=== PATIENT | female | born 1955 | race Caucasian/White ===

== ENCOUNTER → 2016-09-17 | Outpatient (CLI) | payer OTHER ==
--- NOTE | 2016-09-17 14:38 | MM ---
Reason for exam: additional evaluation requested from prior study. Last mammogram was performed 1 year and 1 month ago. History: Patient is postmenopausal, has history of other cancer at age 45, and has history of breast cancer at age 44. Family history of premenopausal breast cancer in mother at age 48. Lumpectomy of the left breast, August 21, 1999. Malignant excisional biopsy of the left breast, July 25, 1999. Radiation therapy of the left breast, 1999. Benign excisional biopsy of the left breast, July 01, 1997. Excisional biopsy of the left breast. Took tamoxifen for 5 years beginning at age 44. Physical Findings: Nurse did not find any significant physical abnormalities on exam. MG Diagnostic Mammo w CAD ADAN Bilateral CC and MLO view(s) were taken. Prior study comparison: August 08, 2015, bilateral MG 3d diag mammo w/cad ADAN. June 14, 2014, bilateral MG diagnostic mammo w CAD ADAN. There are scattered fibroglandular densities. Benign calcifications. Stable post operative distortion in the left breast. No significant new findings when compared with previous films. These results were verbally communicated with the patient and result sheet given to the patient on 09/17/16. ASSESSMENT: Negative, BI-RAD 1 RECOMMENDATION: Follow-up diagnostic mammogram of both breasts in 1 year.
== END | disposition home or self-care (01) ==
LOC: RADMAMWWP 13:29
PROVIDERS: ATTEND Obstetrics & Gynecology
DX: Z08 Encounter for follow-up examination after completed treatment for malignant neoplasm (principal); Z85.3 Personal history of malignant neoplasm of breast

== ENCOUNTER → 2018-01-07 | Outpatient (CLI) | payer OTHER ==
--- NOTE | 2018-01-08 10:29 | MM ---
Reason for exam: additional evaluation requested from prior study. Last mammogram was performed 1 year and 4 months ago. History: Patient is postmenopausal, has history of other cancer at age 45, and has history of breast cancer at age 44. Family history of premenopausal breast cancer in mother at age 48. Lumpectomy of the left breast, August 21, 1999. Malignant excisional biopsy of the left breast, July 25, 1999. Radiation therapy of the left breast, 1999. Benign excisional biopsy of the left breast, July 01, 1997. Excisional biopsy of the left breast. Took tamoxifen for 5 years beginning at age 44. Physical Findings: Nurse did not find any significant physical abnormalities on exam. MG Diagnostic Mammo w CAD ADAN Bilateral CC and MLO view(s) were taken. Prior study comparison: September 17, 2016, bilateral MG diagnostic mammo w CAD ADAN. August 08, 2015, bilateral MG 3d diag mammo w/cad ADAN. The breast tissue is heterogeneously dense. This may lower the sensitivity of mammography. Post surgical and post therapy changes in the left breast. No significant new findings when compared with previous films. These results were verbally communicated with the patient and result sheet given to the patient on 01/07/18. ASSESSMENT: Benign, BI-RAD 2 RECOMMENDATION: Follow-up diagnostic mammogram of both breasts in 1 year.
--- NOTE | 2018-01-08 17:17 | BD ---
EXAMINATION TYPE: Axial Bone Density DATE OF EXAM: 01/07/2018 COMPARISON: 06/02/2015 CLINICAL HISTORY: Height: 64.7 IN Weight: 160 LBS FRAX RISK QUESTIONS: Secondary Osteoporosis: Current Tobacco Use: YES RISK FACTORS HISTORY OF: Active: YES Diet low in dairy products/other sources of calcium: YES MEDICATIONS: Additional Medications: CALCIUM, BLOOD PRESSURE MEDS, Additional History: BREAST CANCER AGE 44 WITH RADIATION EXAM MEASUREMENTS: Bone mineral densitometry was performed using the TwtBks System. Bone mineral density as measured about the Lumbar spine is: ----- L1-L4(G/cm2): 1.038 T Score Values are as follows: ----- L2: -1.6 ----- L3: -1.1 ----- L4: -1.2 ----- L1-L4: -1.2 Bone mineral density has: Increased 1.7% since study of: 06/02/2015 Bone mineral density about the R hip (g/cm2): 0.805 Bone mineral density about the L hip (g/cm2): 0.823 T Score values are as follows: -----R Neck: -1.7 -----L Neck: -1.5 -----R Total: -1.8 -----L Total: -1.6 Bone mineral density has: Decreased -1.4% since study of: 06/02/2015 IMPRESSION: Osteopenia (T Score between -2.5 and -1). There is slightly increased risk of fracture and the patient may be considered for treatment. Re-Screen 2-5 years. NOTE: T-SCORE=SD OF THE YOUNG ADULT MEAN.
== END | disposition home or self-care (01) ==
LOC: RADMAMWWP 15:26
PROVIDERS: ATTEND Obstetrics & Gynecology
DX: Z08 Encounter for follow-up examination after completed treatment for malignant neoplasm (principal); M85.80 Other specified disorders of bone density and structure, unspecified site
CPT/HCPCS: 77066; 77080

== ENCOUNTER → 2019-06-11 | Outpatient (CLI) | payer MEDICARE, BC ==
--- NOTE | 2019-06-11 13:24 | MM ---
Reason for exam: additional evaluation requested from prior study. Last mammogram was performed 1 year and 5 months ago. History: Patient is postmenopausal, has history of other cancer at age 45, and has history of breast cancer at age 44. Family history of premenopausal breast cancer in mother at age 48. Lumpectomy of the left breast, August 21, 1999. Malignant excisional biopsy of the left breast, July 25, 1999. Radiation therapy of the left breast, 1999. Benign excisional biopsy of the left breast, July 01, 1997. Excisional biopsy of the left breast. Took tamoxifen for 5 years beginning at age 44. Physical Findings: Nurse did not find any significant physical abnormalities on exam. MG 3D Diag Mammo W/Cad ADAN Bilateral CC and MLO view(s) were taken. Prior study comparison: January 07, 2018, bilateral MG diagnostic mammo w CAD ADAN. September 17, 2016, bilateral MG diagnostic mammo w CAD ADAN. The breast tissue is heterogeneously dense. This may lower the sensitivity of mammography. There are linear branching new 3.2cm pleomorphic calcifications at the prior lumpectomy site in the left upper outer quadrant. Biopsy recommended CC from above approach to target the branching more medial calcifications. These results were verbally communicated with the patient and result sheet given to the patient on 06/11/19. ASSESSMENT: Suspicious, BI-RAD 4 RECOMMENDATION: Stereotactic core biopsy of the left breast. Called Dr. Guadarrama's office with mammographic findings and has scheduled an appointment for the patient for 07/13/19 at 9:[address] Francois. Biopsy schedueld for 07/03/19 at 10:20. PRELIMINARY REPORT CALLED AND FAXED TO DR. FRANCOIS ON 06/11/19.
== END | disposition home or self-care (01) ==
LOC: RADMAMWWP 10:44
PROVIDERS: ATTEND Obstetrics & Gynecology
DX: Z08 Encounter for follow-up examination after completed treatment for malignant neoplasm (principal); Z85.3 Personal history of malignant neoplasm of breast
CPT/HCPCS: 77066; G0279; 77062

== ENCOUNTER → 2019-07-03 | Day surgery (SDC) | payer MEDICARE, BC ==
[2019-07-03 11:47] VITALS: BP 144/77; PULSE 54; RESP 16; TEMP 97.4
--- NOTE | 2019-07-03 17:00 | MM ---
EXAMINATION TYPE: MG stereo VAD BX LT DATE OF EXAM: 07/03/2019 COMPARISON: 06/11/2019 CLINICAL HISTORY: Abnormal mammogram, calcifications TECHNIQUE: Stereotactic guided core biopsy of left breast. FINDINGS: The procedure of stereotactic guided core biopsy was explained to the patient. Benefits, alternatives, and risks were discussed. An informed consent was then obtained. A timeout was performed. The shortness pathway for biopsy was chosen. Shortness pathway was caudal to cranial approach. The procedure and the targeting were performed by radiology. The skin and deeper breast tissue was anesthetized with 1% lidocaine. The deep tissue was anesthetized with 1% lidocaine with epinephrine. A small skin rhianna was placed. The needle was advanced. Confirmation of positioning was confirmed with stereo views. The needle was advanced and final positioning was confirmed with stereo views. 7 core samples were obtained with a vacuum assisted biopsy device. The sample was evaluated which contained calcifications. The needle was withdrawn and a core marker was placed at the biopsy site. The patient tolerated the procedure well without any immediate complication. Post procedure mammogram: The core marker is within the left breast at the biopsy site. Some calcifications appear to been resected. The patient tolerated procedure well. Discharge instructions were discussed with the patient. Patient will follow-up with her surgeon for results. IMPRESSION: 1. Successful stereotactic core biopsy left breast calcifications. Recommendations: 1. Recommendations are pending pathology results. 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 See Surgical Pathology Cancer Case Summary and Comment. Recommendation Surgical consult of the left breast. DELIA
== END ==
LOC: RADMAMWWP 09:16
PROVIDERS: ATTEND Student in an Organized Health Care Education/Training Program
DX: D05.12 Intraductal carcinoma in situ of left breast (principal)
CPT/HCPCS: 88305; 88342; 88341; 19081; A4648; J2001

== ENCOUNTER → 2020-06-14 | Outpatient (CLI) | payer MEDICARE, BC ==
--- NOTE | 2020-06-14 11:40 | MM ---
Reason for exam: additional evaluation requested from prior study. Last mammogram was performed 1 year ago. History: Patient is postmenopausal, has history of breast cancer at age 64, and has history of other cancer at age 45. Family history of premenopausal breast cancer in mother at age 48. Mastectomy of the left breast, August 2019. Malignant MG stereo VAD BX LT of the left breast, July 03, 2019. Chemotherapy, 2019. Lumpectomy of the left breast, August 21, 1999. Malignant excisional biopsy of the left breast, July 25, 1999. Radiation therapy of the left breast, 1999. Benign excisional biopsy of the left breast, July 01, 1997. Excisional biopsy of the left breast. Took tamoxifen for 5 years beginning at age 44. Physical Findings: Nurse did not find any significant physical abnormalities on exam. MG 3D Diag Mammo W/Cad RT CC and MLO view(s) were taken of the right breast. Prior study comparison: June 11, 2019, bilateral MG 3d diag mammo w/cad ADAN. January 07, 2018, bilateral MG diagnostic mammo w CAD ADAN. The breast tissue is heterogeneously dense. This may lower the sensitivity of mammography. There is no discrete abnormality including area of concern. No significant new findings when compared with previous films. These results were verbally communicated with the patient and result sheet given to the patient on 06/14/20. ASSESSMENT: Benign, BI-RAD 2 RECOMMENDATION: Follow-up diagnostic mammogram of the right breast in 1 year.
== END | disposition home or self-care (01) ==
LOC: RADMAMWWP 10:44
PROVIDERS: ATTEND Internal Medicine Hematology & Oncology
DX: Z08 Encounter for follow-up examination after completed treatment for malignant neoplasm (principal); Z85.3 Personal history of malignant neoplasm of breast; Z90.12 Acquired absence of left breast and nipple
CPT/HCPCS: 77065; G0279; 77061

== ENCOUNTER → 2020-10-07 | Outpatient (CLI) | payer MEDICARE, BC ==
--- NOTE | 2020-10-07 14:53 | CT ---
EXAMINATION TYPE: CT brain louise car DATE OF EXAM: 10/07/2020 COMPARISON: 09/10/2015 HISTORY: Headache and neck pain after reaching injury. CT DLP: 1467.[address] of the brain was performed. The ventricles, basal cisterns and sulci overlying the cerebral convexities demonstrate mild enlargem ent. There is no evidence for intracranial hemorrhage or sulcal effacement. There is decreased attenuatio n about the periventricular white matter and deep white matter of both cerebral hemispheres, compatib le with chronic small vessel ischemia. No mass effects are seen. If symptoms persist consider MRI. Osseous calvarium is intact. IMPRESSION: 1. Age related atrophic and chronic small vessel ischemic change without acute intracranial process seen at this time. CT Cervical Spine: Unenhanced CT of the cervical spine was performed with bone and soft tissue window settings submitted . Coronal and sagittal reconstruction is obtained. There is normal alignment and prevertebral soft tissues. No evidence for acute cervical fracture . Mi ld to moderate degenerative disc space narrowing and spondylosis extending from C3-4 through C6-7. No evidence for central stenosis or disc herniation. Biapical scarring. IMPRESSION: 1. No evidence for acute fracture or subluxation of the cervical spine.
== END | disposition home or self-care (01) ==
LOC: RADCTMAIN 14:14
PROVIDERS: ATTEND Family Medicine
DX: I67.82 Cerebral ischemia (principal); M54.2 Cervicalgia
CPT/HCPCS: 70450; 72125

== ENCOUNTER → 2021-06-16 | Outpatient (CLI) | payer MEDICARE, BC ==
--- NOTE | 2021-06-16 13:31 | MM ---
Reason for exam: additional evaluation requested from prior study. Last mammogram was performed 1 year ago. History: Patient is postmenopausal, has history of breast cancer at age 64, and has history of other cancer at age 45. Family history of premenopausal breast cancer in mother at age 48. Mastectomy of the left breast, August 2019. Malignant MG stereo VAD BX LT of the left breast, July 03, 2019. Chemotherapy, 2019. Lumpectomy of the left breast, August 21, 1999. Malignant excisional biopsy of the left breast, July 25, 1999. Radiation therapy of the left breast, 1999. Benign excisional biopsy of the left breast, July 01, 1997. Excisional biopsy of the left breast. Took tamoxifen for 5 years beginning at age 44. Physical Findings: Nurse did not find any significant physical abnormalities on exam. MG 3D Diag Mammo W/Cad RT CC and MLO view(s) were taken of the right breast. Prior study comparison: June 14, 2020, right breast MG 3d diag mammo w/cad RT. June 11, 2019, bilateral MG 3d diag mammo w/cad ADAN. The breast tissue is heterogeneously dense. This may lower the sensitivity of mammography. Stable benign calcifications. There is no discrete abnormality. No significant new findings when compared with previous films. These results were verbally communicated with the patient and result sheet given to the patient on 06/16/21. ASSESSMENT: Benign, BI-RAD 2 RECOMMENDATION: Follow-up diagnostic mammogram of the right breast in 1 year.
== END | disposition home or self-care (01) ==
LOC: RADMAMWWP 12:41
PROVIDERS: ATTEND Internal Medicine Hematology & Oncology
DX: R92.8 Other abnormal and inconclusive findings on diagnostic imaging of breast (principal); Z78.0 Asymptomatic menopausal state; Z85.3 Personal history of malignant neoplasm of breast
CPT/HCPCS: 77065; G0279; 77061

== ENCOUNTER → 2023-02-13 | Outpatient (CLI) | payer MEDICARE, BC ==
--- NOTE | 2023-02-13 11:31 | CTL ---
EXAMINATION TYPE: CT Low Dose Lung DATE OF EXAM ORDERED: 02/13/2023 HISTORY: . Lung cancer screening CT DLP: 66.[address] CTDI: 1.80 mGy Automated exposure control for dose reduction was used. SCREENING VISIT: COMPARISON: 07/03/2022 TECHNIQUE: Low dose computed tomography scan was performed through the chest at 1 mm thick sections a nd reconstructed images in multiple planes at 1 mm and [address] DIAGNOSTIC QUALITY: Satisfactory FINDINGS: There is mild diffuse centrilobular emphysema. There is interlobular septal thickening peripheral margins of the lung bases compatible with mild int erstitial pulmonary fibrosis. Subsegmental changes seen in both lungs are more typical of atelectasis. No focal pneumonia. There is biapical pleural thickening or scarring. Multiple 2 mm left subpleural pulmonary nodules have a benign appearance. No suspicious appearing nod ule. Changes of prior left mastectomy. There is mild cardiomegaly. Mitral annular calcification and mild c oronary artery calcification. Thoracic aorta measures a maximal dimension of 4 cm cm compatible with ectasia. Assessment for adenopathy limited by noncontrast technique. No pathologic sized lymph nodes. There is a small hiatal hernia. There is hypertrophic and degenerative changes of the spine. IMPRESSION: 1. Mild emphysematous changes with multiple subpleural micronodules which have a benign appearance. 2. Small hiatal hernia. 3. Borderline ascending aortic aneurysm measuring [address] LUNG RAD AND [address] CHEST RECOMMENDATION: Lung-Rad 2 Benign Appearance or Behavior: Continue annual sc reening with LDCT in 12 months.
== END | disposition home or self-care (01) ==
LOC: RADCTMAIN 09:35
PROVIDERS: ATTEND Internal Medicine Hematology & Oncology
DX: Z12.2 Encounter for screening for malignant neoplasm of respiratory organs (principal); F17.210 Nicotine dependence, cigarettes, uncomplicated; J43.2 Centrilobular emphysema; K44.9 Diaphragmatic hernia without obstruction or gangrene; I71.21 Aneurysm of the ascending aorta, without rupture; R91.8 Other nonspecific abnormal finding of lung field
CPT/HCPCS: 71271

== ENCOUNTER → 2023-06-19 | Outpatient (CLI) | payer MEDICARE, BC ==
--- NOTE | 2023-06-20 08:27 | MM ---
Reason for Exam: Screening (asymptomatic). Last screening mammogram was performed 12 month(s) ago. Patient History: Menarche at age 11. First Full-Term at age 23. Postmenopausal. Breast cancer, left, age 64. Other cancer, age 45. Previous chest radiation therapy. Previous chemotherapy at age 64. Tamoxifen for 5 years from age 44 until age 49. Excisional Biopsy on the Left side. 08/2019, Mastectomy on the Left side. 07/03/2019, Malignant Core Biopsy on the left side. 08/21/1999, Lumpectomy on the Left side. 07/25/1999, Malignant Excisional Biopsy on the left side. 07/01/1997, High risk Excisional Biopsy on the left side. 1999, Radiation Therapy on the left side. 2019, Chemotherapy. Mother had breast cancer, age 48. Prior Study Comparison: 06/14/2020 Right Diagnostic Mammogram, [facility]. 06/16/2021 Right Diagnostic Mammogram, [facility]. 06/18/2022 Right MG 3D scr jaylin unilateral w/cad., [facility]. Tissue Density: The breast tissue is heterogeneously dense. This may lower the sensitivity of mammography. Findings: Analyzed By CAD. There is no suspicious group of microcalcifications or new suspicious mass in the right breast. Overall Assessment: Benign, BI-RAD 2 Management: Screening Mammogram of the right breast in 1 year. . Patient should continue monthly self-breast exams. A clinical breast exam by your physician is recommended on an annual basis. This exam should not preclude additional follow-up of suspicious palpable abnormalities. Note on [place] scores and lifetime risk: 1. A [place] score greater than 3% is considered moderate risk. If this is the case, consider specialist referral to assess eligibility for a risk reducing agent. 2. If overall lifetime risk for the development of breast cancer is 20% or higher, the patient may qualify for future screening with alternating mammogram and breast MRI. Electronically signed and approved by: Inder Taylor M.D. Radiologis
== END | disposition home or self-care (01) ==
LOC: RADMAMWWP 09:47
PROVIDERS: ATTEND Internal Medicine Hematology & Oncology
DX: Z12.31 Encounter for screening mammogram for malignant neoplasm of breast (principal); Z78.0 Asymptomatic menopausal state; Z80.3 Family history of malignant neoplasm of breast
CPT/HCPCS: 77067

== ENCOUNTER → 2024-02-20 | Outpatient (CLI) | payer MEDICARE, BC ==
--- NOTE | 2024-02-20 11:43 | CTL ---
EXAMINATION TYPE: CT Low Dose Lung DATE OF EXAM ORDERED: 02/20/2024 History: Lung cancer screening CT DLP: 61.[address] CTDI: 1.70 mGy Automated exposure control for dose reduction was used. Comparison: 02/13/2023 TECHNIQUE: Low dose computed tomography scan was performed through the chest at 1 mm thick sections and reconstructed images in multiple planes at 1 mm and [address] DIAGNOSTIC QUALITY: Satisfactory EXAMINATION TYPE: CT Low Dose Lung DATE OF EXAM ORDERED: 02/20/2024 HISTORY: Lung cancer screening CT DLP: 61.[address] CTDI: 1.70 mGy Automated exposure control for dose reduction was used. Comparison: None TECHNIQUE: Low dose computed tomography scan was performed through the chest at 1 mm thick sections a nd reconstructed images in multiple planes at 1 mm and [address] DIAGNOSTIC QUALITY: Satisfactory FINDINGS: There are mild emphysematous changes. There is a small calcified granuloma in the right lung base. Th ere are no new or suspicious lung masses or nodules. The lungs are clear and there is no abnormal airspace consolidation or interstitial density. There is no mediastinal, hilar or axillary adenopathy. There is no pleural effusion, pleural thickening or pneumothorax. No focal osseous lesions are seen. Limited scans the upper abdomen reveals no gross abnormality IMPRESSION: 1. Lung rads Category 1 negative. Continue routine screening at yearly intervals. 2. No acute cardiopulmonary disease. 3. Mild emphysematous changes. [facility], Workstation: [id number], 02/20/2024 11:41 AM
== END | disposition home or self-care (01) ==
LOC: RADCTMAIN 10:41
PROVIDERS: ATTEND Internal Medicine Hematology & Oncology
DX: Z12.2 Encounter for screening for malignant neoplasm of respiratory organs
CPT/HCPCS: 71271

== ENCOUNTER 2024-02-27 07:10 | Day surgery (SDC) | payer MEDICARE, BC ==
[2024-02-27] MEDS: LACTATED RINGERS 1,000 ML IV SCH (08:01)
[2024-02-27] MEDS: IV FLUID CONTINUATION 1,000 ML IV ONE (08:05)
[2024-02-27] MEDS ORDERED: PROPOFOL 10 MG/ML 20 ML VIAL IV ONE (08:15)
--- NOTE | 2024-02-27 08:17 | P.GSHP ---
History of Present Illness H&P Date: 02/27/24 Chief Complaint: Diarrhea, change in bowel habits, screening colonoscopy This a 68-year-old female presents today for colonoscopy. Patient has issues with diarrhea. Patient denies any significant abdominal pain. Past Medical History Past Medical History: Cancer, Hyperlipidemia, Hypertension Additional Past Medical History / Comment(s): vertigo, hx. skin ca, left breast ca age 43, recurrance in 2019 History of Any Multi-Drug Resistant Organisms: None Reported Past Surgical History: Breast Surgery Additional Past Surgical History / Comment(s): left breast lumpectomy @ age 43 with radiation. left breast mastectomy 2019 and chemotherapy. skin cancer removed, ORAL SURGERY Past Anesthesia/Blood Transfusion Reactions: No Reported Reaction Smoking Status: Current every day smoker Medications and Allergies Home Medications Medication Instructions Recorded Confirmed Type Bisoprolol Fumarate [Zebeta] 10 mg PO DAILY 02/24/24 02/27/24 History Ezetimibe [Zetia] 10 mg PO HS 02/24/24 02/27/24 History hydroCHLOROthiazide 12.5 mg PO DAILY 02/24/24 02/27/24 History lisinopriL [Zestril] 10 mg PO BID 02/24/24 02/27/24 History Allergies Allergy/AdvReac Type Severity Reaction Status Date / Time amoxicillin AdvReac Nausea & Verified 02/27/24 07:49 Vomiting codeine AdvReac Unknown Verified 02/27/24 07:49 Surgical - Exam - General well developed, well nourished, no distress - Eyes PERRL, normal ocular movement - ENT normal pinna - Neck no masses - Respiratory normal expansion - Cardiovascular Rhythm: regular - Abdomen Abdomen: soft, non tender Assessment and Plan Assessment: History of diarrhea. Will perform screening colonoscopy.
--- NOTE | 2024-02-27 08:31 | P.OP ---
Date of Procedure: 02/27/24 Preoperative Diagnosis: Diarrhea Screening colonoscopy Postoperative Diagnosis: Diverticulosis Procedure(s) Performed: Colonoscopy Anesthesia: MAC Surgeon: Kranthi Bonilla Pathology: none sent Condition: stable Disposition: PACU Description of Procedure: The patient was placed on the endoscopy table in the lateral position. She received IV sedation. Digital rectal exam was performed. This revealed no abnormalities. Flexible colonoscope was then placed patient anus and passed throughout the entire colon. The ileocecal valve was visualized. The cecum, ascending and transverse colon appeared normal. The descending and sigmoid colon had some mild diverticular changes. Scope was brought back to the rectum this appeared normal. Scope withdrawn for the patient.
[2024-02-27 08:49] VITALS: RESP 14
[2024-02-27 08:53] VITALS: BP 97/57; PULSE 57
== END 2024-02-27 09:11 | disposition home or self-care (01) ==
LOC: ORWHC2ENDO 07:10
PROVIDERS: ATTEND Surgery
CPT/HCPCS: 45378